=== PATIENT | male | born 1990 | race African-American/Black ===

== ENCOUNTER 2020-06-21 19:59 | Emergency (ER) | payer OTHER ==
[~2020-06-21 19:59] MED LIST: SUDAFED30 MG PO
[2020-06-21 22:37] LABS: BASOPHIL 0.3 % (0-2); EOSINOPHIL 0.8 % (0-5); HCT 42.7 % (42.0-52.0); HGB 13.9 g/dl (13.2-18.0); LYMPHOCYTE 35.2 % (15-48); MCH 29.7 pg (25.0-31.0); MCHC 32.6 g/dL (32.0-36.0); MCV 91.2 fL (78.0-100.0); MONOCYTE 8.4 % (0-12); MPV 10.5 fL (6.0-9.5); NRBC 0; PLT 299 K/uL (150-400); RBC 4.68 M/uL (4.70-6.00); RDW 12.2 % (11.5-14.0); WBC 17.7 K/uL (4.0-10.5)
[2020-06-21 22:39] LABS: ALBUMIN 3.9 g/dL (3.4-5.0); BILIRUBIN - TOTAL 0.4 mg/dL (0.2-1.0); BUN/CREAT RATIO (CALC) 5.6 RATIO; CREATININE 0.89 mg/dL (0.67-1.17); MAGNESIUM 1.6 mg/dL (1.8-2.4); POTASSIUM 3.4 mmol/L (3.5-5.1); TOTAL PROTEIN 7.9 g/dL (6.4-8.2)
[2020-06-22] MEDS ORDERED: ROBAXIN750 MG PO (00:41)
[2020-06-22] MEDS ORDERED: IBUPROFEN800 MG PO (00:41)
== END 2020-06-22 00:55 | disposition home or self-care (01) ==
LOC: FER 19:59
PROVIDERS: Emergency Medicine Emergency Medical Services
DX: M54.12 Radiculopathy, cervical region (principal); F17.210 Nicotine dependence, cigarettes, uncomplicated
CPT/HCPCS: 36415; 71046; 80053; 83735; 84484; 85025; 93005; J1100